=== PATIENT | female | born 1980 | race Caucasian/White ===

== ENCOUNTER 2017-03-01 19:49 | Emergency (ER) | payer MEDICARE | END 2017-03-01 21:24 | disposition home or self-care (01) | LOC: ER1 19:49 | DX: S83.91XA Sprain of unspecified site of right knee, initial encounter (principal); I10 Essential (primary) hypertension; F17.210 Nicotine dependence, cigarettes, uncomplicated; V03.90XA Pedestrian on foot injured in collision with car, pick-up truck or van, unspecified whether traffic or nontraffic accident, initial encounter | CPT/HCPCS: 73564; 99283 ==

== ENCOUNTER 2021-05-12 11:53 | Emergency (ER) | payer OTHER ==
[~2021-05-12 11:53] MED LIST: BENTYL 10MG CAP10 MG PO; COLACE100 MG PO; IBUPROFEN800 MG PO; ZOFRAN 4 MG TAB4 MG PO; ZOFRAN4 MG PO
[2021-05-12] MEDS ORDERED: INDOCIN 50 MG C50 MG PO (14:27)
== END 2021-05-12 14:42 | disposition home or self-care (01) ==
LOC: ER1 11:53
DX: S63.502A Unspecified sprain of left wrist, initial encounter (principal); F17.210 Nicotine dependence, cigarettes, uncomplicated; Z90.49 Acquired absence of other specified parts of digestive tract; X50.0XXA Overexertion from strenuous movement or load, initial encounter
CPT/HCPCS: 29125; 73110; 99283